=== PATIENT | male | born 1945 | race Caucasian/White ===

== ENCOUNTER → 2016-08-13 | Outpatient (CLI) | payer OTHER ==
[~2016-08-13] MED LIST: ALL DAY ALLERGY10 MG PO; ASPIRIN CHEWABL81 MG PO; BRILINTA90 MG PO; COREG 3.125M3.125 MG PO; CRESTOR20 MG PO; ISOSORBIDE MONO60 MG PO; LANOLIN CREAM TP; LANTUS100 UNIT/1 SQ; LISINOPRIL10 MG PO; LORTAB 7.5-3251 EACH PO; METFORMIN HCL1000 MG PO; NEURONTIN 300300 MG PO; NOVOLOG 10100 UNITS/ INJ; PLAVIX 75 MG TA75 MG PO; RANITIDINE HCL300 MG PO; SERTRALINE HCL50 MG PO; TEMOVATE30 GM TP
== END ==
LOC: HEART 5 08:08
DX: R07.9 Chest pain, unspecified (principal)
CPT/HCPCS: 78452; A9502

== ENCOUNTER → 2016-08-26 | Outpatient (CLI) | payer OTHER | LOC: HEART 5 08:47 | DX: R06.02 Shortness of breath (principal); F17.210 Nicotine dependence, cigarettes, uncomplicated; R94.2 Abnormal results of pulmonary function studies ==

== ENCOUNTER → 2016-10-22 | Outpatient (CLI) | payer OTHER ==
[2016-10-22 10:36] LABS: RED BLOOD COUNT 4.68 M/UL (4.20-5.50); WHITE BLOOD COUNT 4.5 K/UL (4.5-11.0)
== END ==
LOC: LAB 09:33
PROVIDERS: Internal Medicine Interventional Cardiology
DX: Z01.810 Encounter for preprocedural cardiovascular examination (principal); Z88.8 Allergy status to other drugs, medicaments and biological substances
CPT/HCPCS: 36415; 80048; 85025; 85610; 85730; 93005

== ENCOUNTER 2016-10-24 06:34 | Outpatient (CLI) | payer OTHER ==
[~2016-10-24] VITALS: Ht 172.7 cm; Wt 89.8 kg
[2016-10-24] MEDS ORDERED: ASPIRIN CHEWABL81 MG PO (07:31)
[2016-10-24] MEDS ORDERED: ALL DAY ALLERGY10 MG PO (07:31)
[2016-10-24] MEDS ORDERED: CRESTOR20 MG PO (07:31)
[2016-10-24] MEDS ORDERED: PLAVIX 75 MG TA75 MG PO (07:32)
[2016-10-24] MEDS ORDERED: ISOSORBIDE MONO60 MG PO (07:33)
[2016-10-24] MEDS ORDERED: LISINOPRIL10 MG PO (07:34)
[2016-10-24] MEDS ORDERED: SERTRALINE HCL50 MG PO (07:34)
[2016-10-24] MEDS ORDERED: COREG 3.125M3.125 MG PO (07:35)
[2016-10-24] MEDS ORDERED: METFORMIN HCL1000 MG PO (07:35)
[2016-10-24] MEDS ORDERED: LORTAB 7.5-3251 EACH PO (07:36)
[2016-10-24] MEDS ORDERED: NEURONTIN 300300 MG PO (07:36)
[2016-10-24] MEDS ORDERED: LANTUS100 UNIT/1 SQ (07:37)
[2016-10-24] MEDS ORDERED: NOVOLOG 10100 UNITS/ INJ (07:38)
[2016-10-24] MEDS ORDERED: TEMOVATE30 GM TP (07:39)
[2016-10-24] MEDS ORDERED: LANOLIN CREAM TP (07:43)
[2016-10-24] MEDS ORDERED: RANITIDINE HCL300 MG PO (07:44)
[2016-10-25 03:49] LABS: RED BLOOD COUNT 4.72 M/UL (4.20-5.50); WHITE BLOOD COUNT 5.2 K/UL (4.5-11.0)
[2016-10-25 04:09] LABS: BUN/CREATININE RATIO 15 (0-10)
[2016-10-25] MEDS ORDERED: BRILINTA90 MG PO (10:43)
== END 2016-10-25 11:24 | disposition home or self-care (01) ==
LOC: CATH 06:34 → PROG CARE 11:15 → CATH 10-25 11:24
PROVIDERS: Internal Medicine Interventional Cardiology
DX: I25.118 Atherosclerotic heart disease of native coronary artery with other forms of angina pectoris (principal); T82.855A Stenosis of coronary artery stent, initial encounter; R94.39 Abnormal result of other cardiovascular function study; R06.02 Shortness of breath; R07.89 Other chest pain; I10 Essential (primary) hypertension; E11.9 Type 2 diabetes mellitus without complications; Z95.5 Presence of coronary angioplasty implant and graft; Z95.1 Presence of aortocoronary bypass graft; I25.2 Old myocardial infarction; E78.5 Hyperlipidemia, unspecified; Z95.810 Presence of automatic (implantable) cardiac defibrillator; Z79.4 Long term (current) use of insulin; Z79.899 Other long term (current) drug therapy; Z87.891 Personal history of nicotine dependence; Z88.8 Allergy status to other drugs, medicaments and biological substances; I49.5 Sick sinus syndrome; I47.2 Ventricular tachycardia; I45.89 Other specified conduction disorders; Z79.82 Long term (current) use of aspirin; Z79.84 Long term (current) use of oral hypoglycemic drugs; Z79.891 Long term (current) use of opiate analgesic
CPT/HCPCS: 36415; 80048; 82962; 85027; 85347; C1725; C1769; C1874; C1887; C9600; J0461; J0583; J1644; J2250; J3010; J7030; Q0162; Q9965

== ENCOUNTER 2021-05-04 23:18 | Emergency (ER) | payer OTHER ==
[2021-05-05 00:19] LABS: HEMOGLOBIN 14.6 gm/dl (14.0-17.5); RED BLOOD COUNT 4.88 M/UL (4.20-5.50); WHITE BLOOD COUNT 6.1 K/UL (4.5-11.0)
[2021-05-05 00:29] LABS: BUN/CREATININE RATIO 22 (0-10)
== END 2021-05-05 02:41 | disposition home or self-care (01) ==
LOC: ER1 23:18
PROVIDERS: Physician Assistant Medical
DX: E11.65 Type 2 diabetes mellitus with hyperglycemia (principal); R79.9 Abnormal finding of blood chemistry, unspecified; E78.5 Hyperlipidemia, unspecified; I11.9 Hypertensive heart disease without heart failure; F17.210 Nicotine dependence, cigarettes, uncomplicated
CPT/HCPCS: 80053; 82962; 85025; 93005; 96374; 99283; J7030

== ENCOUNTER 2021-11-12 13:44 | Emergency (ER) | payer OTHER ==
[2021-11-12 14:36] LABS: HEMOGLOBIN 12.7 gm/dl (14.0-17.5); RED BLOOD COUNT 4.27 M/UL (4.20-5.50); WHITE BLOOD COUNT 9.6 K/UL (4.5-11.0)
[2021-11-12 14:57] LABS: BUN/CREATININE RATIO 17 (0-10)
[2021-11-12] MEDS ORDERED: DOXYCYCLINE HY100 MG PO (18:33)
== END 2021-11-12 18:50 | disposition home or self-care (01) ==
LOC: ER1 13:44
PROVIDERS: Physician Assistant
DX: M25.511 Pain in right shoulder (principal); R50.9 Fever, unspecified; J18.9 Pneumonia, unspecified organism; F17.200 Nicotine dependence, unspecified, uncomplicated; I11.9 Hypertensive heart disease without heart failure; E11.9 Type 2 diabetes mellitus without complications; Z95.1 Presence of aortocoronary bypass graft; Z20.822 Contact with and (suspected) exposure to COVID-19
CPT/HCPCS: 0240U; 71045; 73030; 80053; 81001; 82550; 82553; 83605; 84484; 85025; 87086; 93005; 99284